=== PATIENT | female | born 1975 | race Caucasian/White ===

== ENCOUNTER 2016-07-27 08:54 | Emergency (ER) | payer MEDICAID, OTHER ==
[~2016-07-27] VITALS: Ht 170.2 cm; Wt 59.0 kg
[~2016-07-27 08:54] MED LIST: ALPR-138 PO; DOXY100T PO; SULF1TAB47 PO
[2016-07-27 08:56] VITALS: BP 123/71; PULSE 97; RESP 18; TEMP 98.3; O2SAT 95
[2016-07-27] MEDS ORDERED: IBUP200C PO (09:06)
--- NOTE | 2016-07-27 09:16 | PD ---
HPI Chief Complaint: Back/ Neck Pain or Injury Time Seen by Provider: 09:15 Travel History International Travel<30 days: No Contact w/Intl Traveler<30days: No Traveled to known affect area: No History of Present Illness HPI 41-year-old female presents to the emergency Department with complaint of left lateral neck pain that extends to her left upper back since morning. She denies injury, heavy lifting, strain. Thought she slept on her neck wrong but her symptoms have not improved. She has tried topical creams and heat with some relief of symptoms. She has tried ibuprofen 200 mg with minimal relief of symptoms. Denies fever, chills, nausea, vomiting. Denies radiation of pain. Denies chest pain, shortness of breath. Pain is aggravated with movement of the neck to the left. No known allergies. Denies significant past medical history. No other modifying factors or associated signs and symptoms. PFSH Past Medical History Medical History: Denies Significant Hx Diminished Hearing: No Immunizations Current: No Tetanus Vaccination: Unknown Influenza Vaccination: No ?: Not LMP: 07/2016 Past Surgical History Surgical History: No Previous Surgery Social History Alcohol Use: Yes (OCC) Tobacco Use: Yes ( LESS THAN A PACK ) Substance Use: No Allergies-Medications (Allergen,Severity, Reaction): Coded Allergies: No Known Allergies (Verified , 07/27/16) Reported Meds & Prescriptions Reported Meds & Active Scripts Active Robaxin (Methocarbamol) 500 Mg Tab 500 Mg PO QID PRN Ibuprofen 800 Mg Tab 800 Mg PO Q6HR PRN Reported Ibuprofen 200 Mg Cap 200 Mg PO Q4H PRN Review of Systems Except as stated in HPI: all other systems reviewed are Neg Physical Exam Narrative GENERAL: Well-nourished, well-developed female patient, in no acute distress; afebrile, nontoxic-appearing SKIN: Warm and dry. HEAD: Atraumatic. Normocephalic. EYES: Pupils equal and round. No scleral icterus. No injection or drainage. ENT: Mucosa pink and moist. Airway patent. NECK: Trachea midline. No lymphadenopathy. Active rotation of the neck greater than 45 left and right. No midline point tenderness on palpation of the cervical spine. Reproducible tenderness to left lateral trapezius musculature at the neck and down to to the upper back. Muscle feels tense on palpation. No obvious deformities. CARDIOVASCULAR: Regular rate. RESPIRATORY: No accessory muscle use. GASTROINTESTINAL: Flat. MUSCULOSKELETAL: No obvious deformities. No clubbing. No cyanosis. No edema. Normal gait. BACK: No midline point tenderness on palpation of thoracic spine. No obvious deformities. NEUROLOGICAL: Awake and alert. Oriented 3. No obvious cranial nerve deficits. Motor grossly within normal limits. Normal speech. Moves all extremities. 5/5 strength to all extremities. Sensory intact. PSYCHIATRIC: Appropriate mood and affect; insight and judgment normal. Data Data Last Documented VS Vital Signs Date Time Temp Pulse Resp B/P Pulse Ox O2 Delivery O2 Flow Rate FiO2 07/27/16 08:56 98.3 97 18 123/71 95 Orders Ketorolac Inj (Toradol Inj) (07/27/16 09:30) Orphenadrine Inj (Norflex Inj) (07/27/16 09:30) [facility] Medical Decision Making Medical Screen Exam Complete: Yes Emergency Medical Condition: Yes Medical Record Reviewed: Yes Differential Diagnosis Cervical strain, muscle spasm, stiff neck Narrative Course 41-year-old female physical exam consistent with stiffness of the left lateral neck and muscle spasms. Denies injury. No midline point tenderness on palpation of the cervical spine. The patient is able to actively rotate her neck greater than 45 left and right. 0955: On reexamination the patient reports improvement in symptoms. She says her neck feels less tense. Toradol and Norflex administered in the ER. Ibuprofen and Robaxin prescribed for home. Patient verbalizes understanding and agreement with treatment plan. Patient is medically cleared and stable for discharge. Discussed reasons to return to the emergency department. Instructed patient to follow up with primary care provider. Patient agrees with treatment plan. The patients vital signs are stable and the patient is stable for outpatient follow-up and treatment. Patient discharged home, stable and in no acute distress. Diagnosis Primary Impression: Stiffness of neck Additional Impression: Trapezius muscle spasm Referrals: Primary Care Physician Patient Instructions: Acute Neck Pain (ED), General Instructions, Muscle Spasm (ED) Departure Forms: Tests/Procedures, Work Release Enter return to work date: Jul 29, 2016 Additional Instructions: Tylenol or ibuprofen as directed and as needed to reduce pain Robaxin as prescribed for muscle spasms Get adequate rest Ice and/or heating pad to affected area to reduce pain Avoid aggravating activity; increase activity as tolerated Follow-up with primary care provider Return to the emergency department immediately with worsening symptoms Med/Other Pt SpecificInfo: Prescription(s) given Scripts Methocarbamol (Robaxin)500 Mg [id number] Mg PO QID PRN (MUSCLE SPASM) #30 TAB Ref 0 Prov:Pippa Morrison 07/27/16 Ibuprofen 800 Mg [id number] Mg PO Q6HR PRN (PAIN) #30 TAB Ref 0 Prov:Pippa Morrison 07/27/16 Disposition: 01 DISCHARGE HOME Condition: Stable Pippa Morrison Jul 27, 2016 09:16
[2016-07-27] MEDS ORDERED: IBUP800T23 PO (09:25)
[2016-07-27] MEDS ORDERED: ROBA500T PO (09:25)
[2016-07-27] MEDS ORDERED: ORPHENADRINE INJ 60 MG/2 ML AMP IM ONE (09:30)
[2016-07-27] MEDS ORDERED: KETOROLAC TROMETHAMINE 60 MG/2 ML (IM) VIAL IM ONE (09:30)
== END 2016-07-27 10:07 | disposition home or self-care (01) ==
LOC: NEPK 08:54
DX: M43.6 Torticollis (principal); M62.838 Other muscle spasm; F17.210 Nicotine dependence, cigarettes, uncomplicated
CPT/HCPCS: 96372; 99283; J1885; J2360

== ENCOUNTER 2017-08-10 19:19 | Emergency (ER) | payer MEDICAID ==
[~2017-08-10] VITALS: Ht 170.2 cm; Wt 60.0 kg
[~2017-08-10 19:19] MED LIST changes: -ALPR-138 PO; -DOXY100T PO; +IBUP1TAB7 PO; +IBUP200C PO; +ROBA500T PO; -SULF1TAB47 PO
[2017-08-10 19:39] VITALS: BP 105/57; PULSE 81; RESP 18; TEMP 98.8; O2SAT 99
--- NOTE | 2017-08-10 20:07 | PD ---
HPI Chief Complaint: GI Complaint Time Seen by Provider: 20:07 Travel History International Travel<30 days: No Contact w/Intl Traveler<30days: No Traveled to known affect area: No History of Present Illness HPI 42-year-old female presents emergency department for evaluation of cough and chest congestion of the last week. She states this is progressing to a productive cough. She now is nauseous and vomiting. She states that she feels overall weak. She is uncertain of fever or chills. She denies any diarrhea. She denies any significant pain. She has no other symptoms to report. PFSH Past Medical History Anxiety: Yes Diminished Hearing: No Immunizations Current: No Tetanus Vaccination: Unknown Influenza Vaccination: No ?: Not LMP: 08/08/2017 Tubal Ligation: Yes Social History Alcohol Use: Yes (OCC) Tobacco Use: Yes ( LESS THAN A PACK ) Substance Use: No Allergies-Medications (Allergen,Severity, Reaction): Coded Allergies: No Known Allergies (Verified Adverse Reaction, Unknown, 08/10/17) Reported Meds & Prescriptions Reported Meds & Active Scripts Active Zofran Odt (Ondansetron Odt) 4 Mg Tab 4 Mg SL Q8HR PRN Prednisone 50 Mg Tab 50 Mg PO DAILY 5 Days Zithromax Z-Gopi (Azithromycin) 250 Mg Dspk 250 Mg PO DIRECTED 500 MG (2 tabs) day 1, then 1 tab days 2-5. Robaxin (Methocarbamol) 500 Mg Tab 500 Mg PO QID PRN Ibuprofen 800 Mg Tab 800 Mg PO Q6HR PRN Reported Ibuprofen 200 Mg Cap 200 Mg PO Q4H PRN Review of Systems Except as stated in HPI: all other systems reviewed are Neg Physical Exam Narrative GENERAL: Well-nourished female patient, in no acute distress. SKIN: Focused skin assessment warm/dry. HEAD: Atraumatic. Normocephalic. EYES: Pupils equal and round. No scleral icterus. No injection or drainage. ENT: No nasal bleeding or discharge. Mucous membranes pink and moist. NECK: Trachea midline. No JVD. CARDIOVASCULAR: Regular rate and rhythm. No murmur appreciated. RESPIRATORY: No accessory muscle use. Coarse to auscultation. Breath sounds equal bilaterally. GASTROINTESTINAL: Abdomen soft, non-tender, nondistended. Hepatic and splenic margins not palpable. MUSCULOSKELETAL: No obvious deformities. No clubbing. No cyanosis. No edema. NEUROLOGICAL: Awake and alert. No obvious cranial nerve deficits. Motor grossly within normal limits. Normal speech. PSYCHIATRIC: Appropriate mood and affect; insight and judgment normal. Data Data Last Documented VS Vital Signs Date Time Temp Pulse Resp B/P (MAP) Pulse Ox O2 Delivery O2 Flow Rate FiO2 08/10/17 20:43 18 99 Room Air 08/10/17 19:39 98.8 81 105/57 (73) Orders Orders Beta Hcg (Quant/Titer) (08/10/17 20:12) Complete Blood Count With Diff (08/10/17 20:12) Comprehensive Metabolic Panel (08/10/17 20:12) Lipase (08/10/17 20:12) Prothrombin Time / Inr (Pt) (08/10/17 20:12) Act Partial Throm Time (Ptt) (08/10/17 20:12) Urinalysis - C+S If Indicated (08/10/17 20:12) Iv Access Insert/Monitor (08/10/17 20:12) Ecg Monitoring (08/10/17 20:12) Oximetry (08/10/17 20:12) Ondansetron Inj (Zofran Inj) (08/10/17 20:15) Sodium Chlor 0.9% 1000 Ml Inj (Ns 1000 M (08/10/17 20:12) Sodium Chloride 0.9% Flush (Ns Flush) (08/10/17 20:15) Ketorolac Inj (Toradol Inj) (08/10/17 20:15) Ed Urine Pregnancytest Poc (08/10/17 20:12) Chest, Single Ap (08/10/17 ) Influenzae A/B Antigen (08/10/17 20:12) Ed Discharge Order (08/10/17 21:37) Labs Laboratory Tests Test 08/10/17 20:33 White Blood Count 4.7 TH/MM3 Red Blood Count 4.66 MIL/MM3 Hemoglobin 11.9 GM/DL Hematocrit 36.0 % Mean Corpuscular Volume 77.4 FL Mean Corpuscular Hemoglobin 25.5 PG Mean Corpuscular Hemoglobin Concent 32.9 % Red Cell Distribution Width 13.6 % Platelet Count 190 TH/MM3 Mean Platelet Volume 8.3 FL Neutrophils (%) (Auto) 57.3 % Lymphocytes (%) (Auto) 32.8 % Monocytes (%) (Auto) 8.1 % Eosinophils (%) (Auto) 1.6 % Basophils (%) (Auto) 0.2 % Neutrophils # (Auto) 2.7 TH/MM3 Lymphocytes # (Auto) 1.5 TH/MM3 Monocytes # (Auto) 0.4 TH/MM3 Eosinophils # (Auto) 0.1 TH/MM3 Basophils # (Auto) 0.0 TH/MM3 CBC Comment DIFF FINAL Differential Comment Prothrombin Time 11.3 SEC Prothromb Time International Ratio 1.1 RATIO Activated Partial Thromboplast Time 27.0 SEC Urine Color LIGHT-YELLOW Urine Turbidity CLEAR Urine pH 6.5 Urine Specific Mathews 1.005 Urine Protein NEG mg/dL Urine Glucose (UA) NEG mg/dL Urine Ketones NEG mg/dL Urine Occult Blood NEG Urine Nitrite NEG Urine Bilirubin NEG Urine Urobilinogen LESS THAN 2.0 MG/DL Urine Leukocyte Esterase NEG Urine RBC LESS THAN 1 /hpf Urine WBC LESS THAN 1 /hpf Urine Squamous Epithelial Cells 2 /hpf Urine Bacteria FEW /hpf Microscopic Urinalysis Comment CULT NOT INDICATED Blood Urea Nitrogen 4 MG/DL Creatinine 0.65 MG/DL Random Glucose 86 MG/DL Total Protein 6.9 GM/DL Albumin 3.5 GM/DL Calcium Level 8.0 MG/DL Alkaline Phosphatase 56 U/L Aspartate Amino Transf (AST/SGOT) 13 U/L Alanine Aminotransferase (ALT/SGPT) 16 U/L Total Bilirubin 0.4 MG/DL Sodium Level 138 MEQ/L Potassium Level 3.5 MEQ/L Chloride Level 106 MEQ/L Carbon Dioxide Level 26.3 MEQ/L Anion Gap 6 MEQ/L Estimat Glomerular Filtration Rate 100 ML/MIN Lipase 103 U/L Human Chorionic Gonadotropin, Quant LESS THAN 1 MIU/ML MDM Medical Decision Making Medical Screen Exam Complete: Yes Emergency Medical Condition: Yes Medical Record Reviewed: Yes Differential Diagnosis Pneumonia versus influenza versus bronchitis versus viral syndrome Narrative Course 42-year-old female presents emergency department for evaluation. Patient appears overall well. Vital signs are stable. She does have coarse breath sounds throughout. Patient does have a history of tobacco smoking. Lab work is reviewed. It is without acute concern. Chest x-ray is negative for acute cardiopulmonary disease. Based on patient's history of tobacco smoking, she will be placed on oral antibiotic. She is encouraged to follow-up the primary care provider and return immediately with acute worsening symptoms. Diagnosis Primary Impression: URI (upper respiratory infection) Qualified Codes: J06.9 - Acute upper respiratory infection, unspecified Additional Impressions: Weakness Tobacco abuse Referrals: Primary Care Physician Patient Instructions: General Instructions, Upper Respiratory Infection (ED) Departure Forms: Tests/Procedures, Work Release Enter return to work date: Aug 12, 2017 Additional Instructions: Rest Maintain adequate oral hydration Tylenol or ibuprofen as directed on the package as needed for fever and/or pain Follow-up with a primary care provider Return immediately with any acute worsening symptoms Med/Other Pt SpecificInfo: Prescription(s) given Scripts Ondansetron Odt (Zofran Odt) 4 Mg Tab 4 MG SL Q8HR Y for Nausea/Vomiting, #15 TAB 0 Refills Prov: Nadege Young 08/10/17 Prednisone (Prednisone) 50 Mg Tab 50 MG PO DAILY for 5 Days, #5 TAB 0 Refills Prov: Nadege Young 08/10/17 Azithromycin (Zithromax Z-Gopi) 250 Mg Dspk 250 MG PO DIRECTED for Infection, #1 DSPK 0 Refills 500 MG (2 tabs) day 1, then 1 tab days 2-5. Prov: Nadege Young 08/10/17 Disposition: 01 DISCHARGE HOME Condition: Stable Nadege Young Aug 10, 2017 20:07
[2017-08-10] MEDS ORDERED: SODIUM CHLOR 0.9% 1000 ML INJ 1,000 ML IV SCH (20:12)
[2017-08-10] MEDS ORDERED: KETOROLAC TROMETHAMINE 30 MG/ML (IVP) VIAL IVP ONE (20:15)
[2017-08-10] MEDS ORDERED: SODIUM CHLORIDE 0.9% FLUSH 10 ML FLUSH IV FLUSH PRN (20:15)
[2017-08-10] MEDS ORDERED: ONDANSETRON HCL 4 MG/2 ML VIAL IVP ONE (20:15)
[2017-08-10 20:43] VITALS: RESP 18; O2SAT 99
--- NOTE | 2017-08-10 20:46 | RADRPT ---
EXAM DATE/TIME: 08/10/2017 20:30 [place] COMPARISON: No previous studies available for comparison. INDICATIONS : Cough. MEDICAL HISTORY : None. SURGICAL HISTORY : None. ENCOUNTER: Initial ACUITY: 1 day PAIN SCORE: 0/10 LOCATION: Bilateral chest FINDINGS: A single view of the chest demonstrates the lungs to be symmetrically aerated without evidence of mas s, infiltrate or effusion. The cardiomediastinal contours are unremarkable. Osseous structures are intact. CONCLUSION: No evidence of acute cardiopulmonary disease. Drew Clemens MD on August 10, 2017 at 20:43 Board Certified Radiologist. This report was verified electronically.
[2017-08-10 21:11] LABS: AUTOMATED NEUTROPHIL # 2.7 TH/MM3 (1.8-7.7); BASOPHIL % 0.2 % (0.0-2.0); EOSINOPHIL # 0.1 TH/MM3 (0-0.4); EOSINOPHIL % 1.6 % (0.0-4.0); HEMOGLOBIN 11.9 GM/DL (11.6-15.3); LYMPH % 32.8 % (9.0-44.0); LYMPHOCYTE # 1.5 TH/MM3 (1.0-4.8); MEAN CELL VOLUME 77.4 FL (80.0-100.0); MEAN CORPUSCULAR HEMOGLOBIN 25.5 PG (27.0-34.0); MEAN CORPUSCULAR HGB CONC 32.9 % (32.0-36.0); MEAN PLATELET VOLUME 8.3 FL (7.0-11.0); MONO % 8.1 % (0.0-8.0); MONOCYTE # 0.4 TH/MM3 (0-0.9); NEUT % 57.3 % (16.0-70.0); PLATELET COUNT 190 TH/MM3 (150-450); RED BLOOD COUNT 4.66 MIL/MM3 (4.00-5.30); RED CELL DISTRIBUTION WIDTH 13.6 % (11.6-17.2); WHITE BLOOD COUNT 4.7 TH/MM3 (4.0-11.0)
[2017-08-10 21:20] LABS: INTERNATIONAL NORMALIZED RATIO 1.1 RATIO; PROTHROMBIN TIME - PATIENT 11.3 SEC (9.8-11.6)
[2017-08-10 21:21] LABS: BACTERIA, URINE FEW /hpf; BILIRUBIN, URINE NEG (NEG); BLOOD, URINE NEG (NEG); GLUCOSE,URINE NEG (NEG); KETONE, URINE NEG (NEG); NITRITE,URINE NEG (NEG); PH, URINE 6.5 (5.0-8.5); SQUAMOUS EPITHELIAL CELL URINE 2 /hpf (0-5); URINE COLOR LIGHT-YELLOW (YELLW/STRAW); URINE LEUKOCYTE ESTERASE NEG (NEG)
[2017-08-10 21:23] LABS: ALBUMIN 3.5 GM/DL (3.4-5.0); AST (GOT) 13 U/L (15-37); BICARBONATE 26.3 MEQ/L (21.0-32.0); BLOOD UREA NITROGEN 4 MG/DL (7-18); CHLORIDE 106 MEQ/L (98-107); CREATININE 0.65 MG/DL (0.50-1.00); GLOMERULAR FILTRATION RATE 100 ML/MIN (>89); GLUCOSE,RANDOM 86 MG/DL (74-106); SODIUM (NA) 138 MEQ/L (136-145)
[2017-08-10 21:24] LABS: ALT (GPT) 16 U/L (10-53)
[2017-08-10 21:28] LABS: ALKALINE PHOSPHATASE 56 U/L (45-117); TOTAL BILIRUBIN ADULT 0.4 MG/DL (0.2-1.0); TOTAL PROTEIN 6.9 GM/DL (6.4-8.2)
[2017-08-10] MEDS ORDERED: PRED50 PO (21:39)
[2017-08-10] MEDS ORDERED: ZOFR4TAB3 SL (21:39)
[2017-08-10] MEDS ORDERED: ZITHTAB PO (21:39)
--- NOTE | 2017-08-10 22:31 | PD ---
Data Data Last Documented VS Vital Signs Date Time Temp Pulse Resp B/P (MAP) Pulse Ox O2 Delivery O2 Flow Rate FiO2 08/10/17 20:43 18 99 Room Air 08/10/17 19:39 98.8 81 105/57 (73) Orders Orders Beta Hcg (Quant/Titer) (08/10/17 20:12) Complete Blood Count With Diff (08/10/17 20:12) Comprehensive Metabolic Panel (08/10/17 20:12) Lipase (08/10/17 20:12) Prothrombin Time / Inr (Pt) (08/10/17 20:12) Act Partial Throm Time (Ptt) (08/10/17 20:12) Urinalysis - C+S If Indicated (08/10/17 20:12) Iv Access Insert/Monitor (08/10/17 20:12) Ecg Monitoring (08/10/17 20:12) Oximetry (08/10/17 20:12) Ondansetron Inj (Zofran Inj) (08/10/17 20:15) Sodium Chlor 0.9% 1000 Ml Inj (Ns 1000 M (08/10/17 20:12) Sodium Chloride 0.9% Flush (Ns Flush) (08/10/17 20:15) Ketorolac Inj (Toradol Inj) (08/10/17 20:15) Ed Urine Pregnancytest Poc (08/10/17 20:12) Chest, Single Ap (08/10/17 ) Influenzae A/B Antigen (08/10/17 20:12) Ed Discharge Order (08/10/17 21:37) Labs Laboratory Tests Test 08/10/17 20:33 White Blood Count 4.7 TH/MM3 Red Blood Count 4.66 MIL/MM3 Hemoglobin 11.9 GM/DL Hematocrit 36.0 % Mean Corpuscular Volume 77.4 FL Mean Corpuscular Hemoglobin 25.5 PG Mean Corpuscular Hemoglobin Concent 32.9 % Red Cell Distribution Width 13.6 % Platelet Count 190 TH/MM3 Mean Platelet Volume 8.3 FL Neutrophils (%) (Auto) 57.3 % Lymphocytes (%) (Auto) 32.8 % Monocytes (%) (Auto) 8.1 % Eosinophils (%) (Auto) 1.6 % Basophils (%) (Auto) 0.2 % Neutrophils # (Auto) 2.7 TH/MM3 Lymphocytes # (Auto) 1.5 TH/MM3 Monocytes # (Auto) 0.4 TH/MM3 Eosinophils # (Auto) 0.1 TH/MM3 Basophils # (Auto) 0.0 TH/MM3 CBC Comment DIFF FINAL Differential Comment Prothrombin Time 11.3 SEC Prothromb Time International Ratio 1.1 RATIO Activated Partial Thromboplast Time 27.0 SEC Urine Color LIGHT-YELLOW Urine Turbidity CLEAR Urine pH 6.5 Urine Specific Anthony 1.005 Urine Protein NEG mg/dL Urine Glucose (UA) NEG mg/dL Urine Ketones NEG mg/dL Urine Occult Blood NEG Urine Nitrite NEG Urine Bilirubin NEG Urine Urobilinogen LESS THAN 2.0 MG/DL Urine Leukocyte Esterase NEG Urine RBC LESS THAN 1 /hpf Urine WBC LESS THAN 1 /hpf Urine Squamous Epithelial Cells 2 /hpf Urine Bacteria FEW /hpf Microscopic Urinalysis Comment CULT NOT INDICATED Blood Urea Nitrogen 4 MG/DL Creatinine 0.65 MG/DL Random Glucose 86 MG/DL Total Protein 6.9 GM/DL Albumin 3.5 GM/DL Calcium Level 8.0 MG/DL Alkaline Phosphatase 56 U/L Aspartate Amino Transf (AST/SGOT) 13 U/L Alanine Aminotransferase (ALT/SGPT) 16 U/L Total Bilirubin 0.4 MG/DL Sodium Level 138 MEQ/L Potassium Level 3.5 MEQ/L Chloride Level 106 MEQ/L Carbon Dioxide Level 26.3 MEQ/L Anion Gap 6 MEQ/L Estimat Glomerular Filtration Rate 100 ML/MIN Lipase 103 U/L Human Chorionic Gonadotropin, Quant LESS THAN 1 MIU/ML MDM Supervised Visit with KADEN: Yes Narrative Course I, Dr. Curtis, have reviewed the advance practice practitioner's documentation and am in agreement, met with the patient face to face, made the diagnosis, and the medical decision making was done by me. *My assessment and Findings: I reviewed the workup with her in entirety. She appears comfortable. Lab studies and x-rays are negative. Stable for outpatient follow-up. received ivf Diagnosis Primary Impression: URI (upper respiratory infection) Qualified Codes: J06.9 - Acute upper respiratory infection, unspecified Additional Impressions: Tobacco abuse Weakness Referrals: Primary Care Physician Patient Instructions: General Instructions, Upper Respiratory Infection (ED) Departure Forms: Work Release, Enter return to work date: Tests/Procedures Additional Instruction: Rest Maintain adequate oral hydration Tylenol or ibuprofen as directed on the package as needed for fever and/or pain Follow-up with a primary care provider Return immediately with any acute worsening symptoms Scripts Ondansetron Odt (Zofran Odt) 4 Mg Tab 4 MG SL Q8HR Y for Nausea/Vomiting, #15 TAB 0 Refills Prov: Nadege Young 08/10/17 Prednisone (Prednisone) 50 Mg Tab 50 MG PO DAILY for 5 Days, #5 TAB 0 Refills Prov: Nadege Young 08/10/17 Azithromycin (Zithromax Z-Gopi) 250 Mg Dspk 250 MG PO DIRECTED for Infection, #1 DSPK 0 Refills 500 MG (2 tabs) day 1, then 1 tab days 2-5. Prov: Nadege Young 08/10/17 Disposition: 01 DISCHARGE HOME Condition: Stable Ravin Curtis MD Aug 10, 2017 22:31
== END 2017-08-10 22:57 | disposition home or self-care (01) ==
LOC: NEPD 19:19
DX: J06.9 Acute upper respiratory infection, unspecified (principal); R53.1 Weakness; R11.2 Nausea with vomiting, unspecified; Z72.0 Tobacco use
CPT/HCPCS: 71045; 80053; 81001; 83690; 84702; 84703; 85025; 85610; 85730; 87804; 96361; 96374; 96375; 99284; J1885; J2405; J7030